=== PATIENT | female | born 1965 | race Caucasian/White ===

== ENCOUNTER 2023-11-18 06:54 | Outpatient (CLI) | payer BC, SELFPAY ==
--- NOTE | 2023-11-18 07:48 | NMCV_ITS ---
NM ozzy perf SPECT r/s* [id number] Ce Arreguin Age: 58 Gender: F : 1965 Exam Date: 11/18/2023 08:11 Ordering Phys: Gracy Amos Technologist: OSCAR Gonzales Exam Location: [facility] Indications: CP, SOB STRESS TEST Please see separate stress test report in [facility] for full findings IMAGE PROTOCOL Rest/Stress 1 Lexiscan Day Radiopharmaceutical Dose (mCi) Administration Site Administered by Rest: Tc-99m 10.8 IV - right wrist OSCAR Gonzales Sestamibi Stress:Tc-99m 32.9 IV OSCAR Gonzales Sestamibi Rest: 18-Nov-2023 60 Discovery 630 Stress: 18-Nov-2023 30 Discovery 630 0.4mg Lexiscan. Images obtained in supine and prone position. SPECT RESULTS Technical Quality: Good Raw Data Analysis: Breast attenuation Image Corrections: No attenuation or motion correction applied Summed Stress Score: 6 Summed Rest Score: 5 Summed Difference Score: 2 PERFUSION FINDINGS Moderate area of minimal to moderately decreased tracer uptake was noted involving the mid inferolateral, apical lateral, apical inferior and LV apex . Minimal reversibility was noted in the apical inferior and LV apex-supine imaging. However the prone imaging, uniform myocardial tracer uptake was noted. FUNCTIONAL RESULTS (calculated via Gated SPECT) Stress Image LV EF (%): 86 Stress EDV (mL):99 TID: 1.04 Stress ESV (mL):14 FUNCTIONAL FINDINGS: Segmental wall motion analysis revealing no gross wall motion abnormalities IMPRESSIONS 1. Myocardial perfusion imaging revealing moderate area of minimal to moderately decreased tracer uptake involving the inferolateral , apical lateral, apical inferior and LV apex with some reversibility in the apical inferior and LV apex suggesting myocardial scarring involving the distribution of the left circumflex artery/right coronary artery with a small area of possible ciera-infarction ischemia. Because of the inconsistency with the supine imaging, the reliability of this finding is questionable 2. Normal LV ejection fraction of 86% 3. LV wall motion analysis revealing no gross wall motion abnormalities. 4. Normal LV volume No similar previous studies are available for comparison Dr Kathryn Clemons MD [facility] (Electronically Signed) Final Date: 22 November 2023 22:09 S
--- NOTE | 2023-11-18 07:48 | ECG_ITS ---
[facility] Test Date: 2023-11-18 Pat Name: Ce Arreguin Department: Room: Gender: Female Nail Technician: : 1965 Requested By: Gracy Amos Order Number: [id number] Halima MD: Kathryn Clemons M.D. Interpretive Statements NAME OF STUDY: LEXISCAN SESTAMIBI STRESS TEST INDICATION: PALPITATIONS/SYNCOPE, PROCEDURE: At the baseline, the EKG revealed normal sinus rhythm with nonspecific ST-T changes.. The baseline heart was 88 bpm with a blood pressue of 159/88 mm of Hg Lexiscan was infused over a period of 20 seconds. A total of 0.4 milligrams of Lexiscan was infused. The stress phase was continued for a total of 5 minutes. Heart rate at the end of the stress phase was 100 bpm with a blood pressure 140/80 mm of Hg. The EKG at the peak infusion revealed slightly more prominent ST-T changes. Sestamibi was injected 20 seconds after the Lexiscan infusion. Heart rate at the end of the recovery phase was 95 bpm with a blood pressure of 139/81 mm of Hg. CONCLUSION: 1. Nonspecific EKG changes with the LexiScan infusion 2. No LexiScan induced chest pain or cardiac arrhythmia 3. Normal blood pressure and heart rate response 4. Sestamibi/sestamibi perfusion scan pending; see separate report. Electronically Signed On 11-27-2023 20:38:30 CDT by Kathryn Clemons M.[email or web address]
[2023-11-18 07:49] VITALS: BMI 42.5
[2023-11-18] MEDS: regadenoson 0.4 Mg/5 ml Syringe IVP (09:28)
[2023-11-18 10:25] VITALS: BP 139/81; PULSE 97
== END 2023-11-18 06:55 | disposition home or self-care (01) ==
PROVIDERS: PCP Family Medicine; Visit Provider Registered Nurse
DX: R00.2 Palpitations (principal); R55 Syncope and collapse; I10 Essential (primary) hypertension; E66.01 Morbid (severe) obesity due to excess calories; R94.39 Abnormal result of other cardiovascular function study
CPT/HCPCS: 36415; 78452; 93017; 96374; A9500; J2785